=== PATIENT | female | born 1950 | race Caucasian/White ===

== ENCOUNTER 2016-08-23 12:19 | Outpatient (CLI) ==
--- NOTE | 2016-08-23 13:43 | US ---
EXAM: Ultrasound bilateral carotid duplex. HISTORY: Dizziness. COMPARISON: 09/07/2015. CT angiogram 10/07/2015. TECHNIQUE: Multiple elias scale and color Doppler images were obtained. FINDINGS: Please note that estimates of internal carotid artery stenoses are based upon NASCET eliseo samson. Right carotid: Mixed plaquing present which causes near 50% stenosis in the proximal internal carot id artery. Peak systolic velocity measurement in the right internal carotid artery is 1.7 meters pe r second. Right internal to common carotid artery peak systolic velocity ratio measures 2.4. End d iastolic velocity measurement in the right internal carotid artery is 0.6 meters per second. Flow i n the right vertebral artery is antegrade. Left carotid: Mixed plaquing present which approaches 50% stenosis. Peak systolic velocity measure ment in the left internal carotid artery is 1.5 meters per second. Left internal to common carotid artery peak systolic velocity ratio measures 3.4. End diastolic velocity measurement in the left in ternal carotid artery measures 0.3 meters per second. Flow in the left vertebral artery is antegrad e. IMPRESSION: 1. Findings suggest moderate, 50-69%, stenosis in the right or left internal carotid arteries. 2. Antegrade flow in both vertebral arteries.
== END 2016-08-23 12:20 | disposition home or self-care (01) ==
LOC: RAD 12:19
PROVIDERS: ATTEND Internal Medicine
DX: R42 Dizziness and giddiness (principal)

== ENCOUNTER 2016-08-24 06:49 | Outpatient (CLI) ==
--- NOTE | 2016-08-24 08:51 | DI ---
Exam: Two x-rays of the chest. Comparison: 09/07/2015. Reason for exam: Cough and smoker. FINDINGS: No pneumothorax, pleural effusion, or focal consolidation. The cardiac silhouette is not enlarged. The imaged osseous structures are atraumatic. Degenerative changes are seen in the thor acic spine and shoulders. Density seen overlying the left axilla region is presumed to be external t o the patient. Impression: 1. No acute cardiopulmonary process. 2. Density overlying the left axilla is presumed to the exterior to the patient. Recommend further evaluation if clinical concern exists.
--- NOTE | 2016-08-27 07:58 | ECHO2D ---
Date of Exam: 08/24/16 Ordering Physician: DURAN BOOTHE Reason for Echo: CHEST PAIN, HTN, DIZZINESS, FATIGUE M-Mode Normal Adult Results LV Dimensions Normal Adult Results AoV Opening excursions >1.6 >1.6 LVEDD-base- 3.5-5.8 5.7 Ao root dimensions 2.0-3.7 3.0 LVESD-base- 3.1-4.6 L. Atrium dimensions 1.9-3.8 4.5 Post. Wall thickness 0.8-1.1 1.2 IV septum (thickness) 0.7-1.2 1.2 Post. Wall excursion 0.72-1.3 NORMAL Septal motion NORMAL Systolic motion R. Ventricular cavity 1.5-2.0 NORMAL LVEF 60% 58% Paradoxical septal wall motion NORMAL 2-D : BORDERLINE ENLARGED LEFT ATRIAL AND LEFT VENTRICLE CAVITIES--NORMAL LEFT VENTRICULAR CONTRACTILITY--NO EFFUSION, NO THROMBUS, VALVES--NORMAL M-MODE: MV: NORMAL AV: NORMAL TV: NORMAL PV: CHAMBER SIZE: ENLARGED LEFT ATRIAL AND LEFT VENTRICLE CAVITIES WALL MOTION: NORMAL PERICARDIUM: NORMAL INTERPRETATION: 1. BORDERLINE LEFT VENTRICULAR HYPERTROPHY WITH ENLARGED LEFT ATRIAL CAVITY 2. BORDERLINE LEFT VENTRICLE CAVITY 3. NORMAL LEFT VENTRICLE CONTRACTILITY MTDD
== END 2016-08-24 06:50 | disposition home or self-care (01) ==
LOC: CAR 06:49 → RAD 06:50
PROVIDERS: ATTEND Internal Medicine
DX: R05 Cough (principal); F17.210 Nicotine dependence, cigarettes, uncomplicated; R07.9 Chest pain, unspecified; R53.83 Other fatigue; I10 Essential (primary) hypertension; R42 Dizziness and giddiness

== ENCOUNTER 2016-08-27 06:46 | Outpatient (CLI) ==
--- NOTE | 2016-08-27 09:11 | STRESSECHO ---
Date of Test: 08/27/16 Ordering Physician: DURAN BOOTHE Reason for Exam: CHEST PAIN, DIZZINESS, HYPERTENSION Current Medications: ZOLOFT, SIMVASTATIN, PANTOPRAZOLE, LIBRIUM Physical Findings: S1, S2, NO S3 Resting EKG: SINUS RHYTHM, NO ACUTE CHANGES Target Heart Rate: 130 STAGE MPH/GRADE HEART RATE BPM BLOOD PRESSURE mmhg RHYTHM S-T SEGMENT +/- UP DOWN SYMPTOMS,COMMENTS At Rest 65 140/86 SR X NONE 1 1.7/10% 95 160/80 SR X NONE 2 2.5/12% 120 200/80 SR X NONE 3 3.4/14% 4 4.2/16% 5 5.0/18% Immediately after 122 240/76 SR X SHORT OF BREATH Durations of Exercise: 6:05 Maximum Heart Rate Reached: 122 Reason for Termination: SHORT OF BREATH INTERPRETATION: 96% OXYGEN SATURATION WITH EXERCISE ON ROOM AIR METS 7.2 1. NO EVIDENCE OF ISCHEMIA BY ST-T WAVE 2. BLOOD PRESSURE RESPONSE HYPERTENSION WITH EXERCISE (SEVERE) 3. COUPLE OF PVC'S WITH EXERCISE 4. NO CHEST PAIN OR DISCOMFORT NORMAL LEFT VENTRICULAR CONTRACTILITY--RESTING AND POST EXERCISE MTDD
--- NOTE | 2016-08-27 09:53 | ECHOSTRESS ---
Date of Exam: 08/27/16 Ordering Physician: DURAN BOOTHE Reason for Echo: CHEST PAIN, DIZZINESS, HTN, STRESS TEST--NO ISCHEMIA M-Mode Normal Adult Results LV Dimensions Normal Adult Results AoV Opening excursions >1.6 LVEDD-base- 3.5-5.8 Ao root dimensions 2.0-3.7 LVESD-base- 3.1-4.6 L. Atrium dimensions 1.9-3.8 Post. Wall thickness 0.8-1.1 IV septum (thickness) 0.7-1.2 Post. Wall excursion 0.72-1.3 Septal motion Systolic motion R. Ventricular cavity 1.5-2.0 LVEF 60% Paradoxical septal wall motion 2-D: NORMAL LEFT VENTRICULAR RESTING AND POST EXERCISE M-MODE: MV: AV: TV: PV: CHAMBER SIZE: WALL MOTION: NORMAL LEFT VENTRICULAR RESTING AND POST EXERCISE PERICARDIUM: INTERPRETATION: 1. NORMAL LEFT VENTRICULAR RESTING AND POST EXERCISE MTDD
== END 2016-08-27 06:47 | disposition home or self-care (01) ==
LOC: CAR 06:46
PROVIDERS: ATTEND Internal Medicine
DX: R07.9 Chest pain, unspecified (principal); I10 Essential (primary) hypertension; R42 Dizziness and giddiness; R53.83 Other fatigue

== ENCOUNTER 2016-09-18 12:54 | Outpatient (CLI) ==
--- NOTE | 2016-09-19 08:21 | MAMMO ---
EXAM: Bilateral digital screening mammogram History: Screening Comparison: Bilateral mammogram 09/07/2015 Findings: MLO and CC views of bilateral breast demonstrate scattered fibroglandular breast parenchy ma. Stable benign bilateral breast lymph nodes. There are no dominant masses, no suspicious calcif ications and no architectural distortions Impression: Benign stable mammogram. Recommend followup routine screening mammography in 1 year. BIRADS 2
== END 2016-09-18 12:55 | disposition home or self-care (01) ==
LOC: RAD 12:54
PROVIDERS: ATTEND Internal Medicine
DX: Z12.31 Encounter for screening mammogram for malignant neoplasm of breast (principal)

== ENCOUNTER 2016-10-22 13:54 | Outpatient (CLI) ==
--- NOTE | 2016-10-22 14:26 | DI ---
EXAM: Three-view lumbar spine COMPARISON: None HISTORY: Back pain. FINDINGS: There may be a transitional lumbosacral segment. There is some minimal vertebral body heig ht loss seen involving the lower thoracic vertebral bodies. There is a minimal retrolisthesis of L1 on L2 and L2 on L3. There is some mild disc space narrowing in the upper lumbar spine. There is a mo derate degree of diffuse degenerative change. The visualized sacroiliac joints are symmetric with no evidence for erosion. There is a rounded raoul cification in the right upper quadrant which may be a gallstone. There is advanced calcific atherosc lerosis. IMPRESSION: 1. No definite acute abnormality. There are degenerative changes as noted. If clinically indicate d MRI may be helpful. 2. Possible gallstone. Recommend an ultrasound if clinically indicated.
== END 2016-10-22 13:55 | disposition home or self-care (01) ==
LOC: RAD 13:54
PROVIDERS: ATTEND Internal Medicine
DX: M54.5 Low back pain (principal)

== ENCOUNTER 2016-12-11 13:55 | Outpatient (CLI) | payer OTHER | END 2016-12-11 13:56 | disposition home or self-care (01) | LOC: LAB 13:55 | PROVIDERS: ATTEND Internal Medicine | DX: Z11.59 Encounter for screening for other viral diseases (principal) | CPT/HCPCS: 36415; 86803 ==

== ENCOUNTER 2017-02-28 16:35 | Outpatient (CLI) | payer OTHER ==
[2017-02-28 17:06] LABS: CREATININE 0.75 mg/dL (0.60-1.30)
== END 2017-02-28 16:36 | disposition home or self-care (01) ==
LOC: LAB 16:35
PROVIDERS: ATTEND Internal Medicine
DX: Z01.812 Encounter for preprocedural laboratory examination (principal)
CPT/HCPCS: 36415; 82565

== ENCOUNTER 2017-03-01 07:54 | Outpatient (CLI) | payer OTHER ==
--- NOTE | 2017-03-01 08:59 | CT ---
EXAM: CT abdomen pelvis with contrast HISTORY: Lower abdominal pain COMPARISON: 06/22/2014 TECHNIQUE: CT abdomen pelvis performed with intravenous contrast. Coronal and sagittal reformatted images obtained. FINDINGS: Lung bases clear. No free air. No acute abnormalities of the bones. Degenerative change in the spine. Heart normal in size. Liver appears normal. There is a 2 cm gallstone. Pancreas ap pears normal. Spleen appears normal. Adrenals appear normal. Kidneys appear normal. Aorta normal in caliber. Mild to moderate atherosclerosis. Uterus unremarkable. Bladder only mildly distended a nd poorly evaluated, grossly unremarkable. No lymphadenopathy or ascites. Stomach appears normal. No dilated loops small bowel. Appendix appears normal. Colon unremarkable. Tiny fat-containing umb ilical hernia. No inflammatory stranding identified in the abdomen or pelvis. IMPRESSION: 1. No acute inflammatory process identified in the abdomen or pelvis. 2. Cholelithiasis.
== END 2017-03-01 07:55 | disposition home or self-care (01) ==
LOC: RAD 07:54
PROVIDERS: ATTEND Internal Medicine
DX: R10.30 Lower abdominal pain, unspecified (principal)

== ENCOUNTER 2017-03-04 08:02 | Outpatient (CLI) ==
--- NOTE | 2017-03-04 11:03 | MRI ---
EXAM: Brain MRI with and without contrast. HISTORY: Dizziness. COMPARISON: Head CT 04/10/2016. TECHNIQUE: Multiplanar, multisequence MR images were acquired of the brain before and after administ ration of intravenous contrast. FINDINGS: The midline structures are central and the craniocervical junction is unremarkable. The v entricles and sulci are prominent compatible with age related involutional changes. There are no abn ormal extra-axial fluid collections. The brain parenchyma has no restricted diffusion to suggest acute hypoperfusion or infarction. There is a thin band of periventricular T2 hyperintensity and small T2 hyperintensities are present in the supratentorial white matter and left graciela compatible with mild leukomalacia. There is no abnormal d ark gradient echo signal. After administration of gadolinium, no enhancing lesions are identified. The corpus callosum has a normal configuration. The pituitary gland is normal in size with homogeneo us contrast enhancement. There are no intraorbital masses. There has been previous lens surgery bilaterally. Minor hyperosto sis frontalis interna is present. The frontal sinus is hypoplastic. Mild mucosal thickening is pres ent in the right sphenoid air cell. Remainder of the paranasal sinuses, middle ears and mastoids are unremarkable. There is no abnormal contrast enhancement in the internal auditory canals or labyrinth ine structures. There is mild adenoidal hypertrophy. Flow voids are present in the major intracranial arteries and dural venous sinuses. Degenerative cameron ges are present in the soft tissues anterior to the odontoid. IMPRESSION: 1. No vestibular schwannoma, intracranial hemorrhage or acute cerebral infarct. 2. Age related involutional changes and mild chronic ischemic small vessel disease.
== END 2017-03-04 08:03 | disposition home or self-care (01) ==
LOC: RAD 08:02
PROVIDERS: ATTEND Internal Medicine
DX: R42 Dizziness and giddiness (principal)

== ENCOUNTER 2017-08-05 10:46 | Day surgery (SDC) | payer OTHER ==
[2017-08-05] MEDS ORDERED: VERSED ONE (12:20)
[2017-08-05] MEDS ORDERED: DIPRIVAN 20 ML VIAL IVP ONE (12:20)
[2017-08-05] MEDS ORDERED: LIDOCAINE 1% 20 ML MDV ID STA (12:25)
[2017-08-05 15:15] VITALS: BP 126/67; TEMP 97.3
--- NOTE | 2017-08-06 11:10 | OP ---
PROCEDURE: COLONOSCOPY TO THE CECUM WITH SNARE POLYPECTOMY. ENDOSCOPIST: Nayeli BYRD M.D. INDICATION: HISTORY OF ABDOMINAL PAIN; NO PREVIOUS COLONOSCOPY. INSTRUMENT: [id number]. MEDICATION: PER ANESTHESIA. [place] Bowel Prep Score 2 + 2 + 3 = 7. PROCEDURE: The patient was positioned for colonoscopy. The digital rectal exam was negative. The colonoscope was inserted through the anus and advanced to the cecum. The cecum was identified using the ileocecal valve and the appendiceal orifice as landmarks. The scope was slowly withdrawn through an adequately prepped colon. The exam was notable for a 1 cm polyp in the cecum, removed using snare cautery. Small polyps removed at 50 and 40 cm using snare cautery. Diverticulosis of the left colon. Hemorrhoids seen on retroflex exam. Withdrawal time 8 minutes and 27 seconds. PLAN: 1. Review pathology with repeat colonoscopy in 3 years. GABRIEL
== END 2017-08-05 13:25 | disposition home or self-care (01) ==
LOC: SURG 10:46
PROVIDERS: ATTEND Internal Medicine Gastroenterology
DX: R10.9 Unspecified abdominal pain (principal); D12.0 Benign neoplasm of cecum; K63.5 Polyp of colon; K57.30 Diverticulosis of large intestine without perforation or abscess without bleeding; K64.9 Unspecified hemorrhoids

== ENCOUNTER 2017-09-20 10:53 | Outpatient (CLI) | payer OTHER ==
--- NOTE | 2017-09-20 11:42 | DI ---
EXAM: Two views of the chest. History: Cough, history smoking Comparison: Chest radiograph 08/24/2016 Findings: Heart size is within normal limits. No focal consolidation. No appreciable pleural fluid and no pneumothorax. No acute osseous abnormalities. Impression: No acute cardiopulmonary process.
--- NOTE | 2017-09-20 11:45 | DI ---
EXAM: Three views of the lumbar spine. History: Lower back pain. Comparison: Lumbar spine radiograph 10/22/2016 Findings: Atherosclerotic vascular calcifications. Cholelithiasis again noted. No acute fracture o r subluxation of the lumbar spine. No significant interval change in the multilevel mild to moderate degenerative disc space narrowing with endplate sclerosis and osteophyte formation. Moderate facet hypertrophy again seen within the lower lumbar spine and worse on the left. Impression: 1. No acute osseous abnormality. 2. Stable degenerative changes. 3. Cholelithiasis.
--- NOTE | 2017-09-23 10:16 | MAMMO ---
EXAM: Bilateral digital screening mammogram (2-D and 3-D) History: Screening Comparison: Bilateral mammogram 09/18/2016 Findings: MLO and CC views of bilateral breasts demonstrate scattered fibroglandular breast parenchy ma. CAD was reviewed by the radiologist. Tomosynthesis was performed. Stable benign bilateral s[address] nodules. There are no developing masses and no suspicious microcalcifications. Impression: Benign stable mammogram. Recommend followup routine screening mammography in 1 year. BIRADS 2
== END 2017-09-20 10:54 | disposition home or self-care (01) ==
LOC: RAD 10:53
PROVIDERS: ATTEND Internal Medicine
DX: Z12.31 Encounter for screening mammogram for malignant neoplasm of breast (principal); R05 Cough; M54.5 Low back pain; M47.816 Spondylosis without myelopathy or radiculopathy, lumbar region; F17.210 Nicotine dependence, cigarettes, uncomplicated
CPT/HCPCS: 77067

== ENCOUNTER 2018-04-08 07:08 | Outpatient (CLI) | payer OTHER ==
--- NOTE | 2018-04-08 09:56 | US ---
EXAM: Bilateral carotid artery Doppler. History: Dizziness, hypertension, weakness. Comparison: Carotid Doppler 08/23/2016 Technique: Multiple sonographic images through the bilateral internal carotid arteries were obtained . Color duplex Doppler was used to interrogate vascular flow. Findings: The right ICA peak systolic velocity is moderately elevated measuring 130 cm/sec. The righ t ICA/cca PSV ratio is moderately increased at 2.4. Right vertebral artery is patent and demonstrate s antegrade flow. [place] scale images demonstrate mild to moderate plaque buildup within the right int ernal carotid artery. The left ICA peak systolic velocity is moderately elevated measuring 140 cm/sec. The left ICA/cca PS V ratio is moderately increased at 2.2. The left vertebral artery is patent and demonstrates antegra de flow. Sanabria scale images demonstrate moderate plaque buildup within the left internal carotid vitaliy ry. Impression: Moderate, 50-60% hemodynamic stenosis of the bilateral internal carotid arteries and wor se on the left. No significant interval change compared to the prior study.
--- NOTE | 2018-04-09 09:50 | ECHO2D ---
Date of Exam: 04/08/18 Ordering Physician: DR. DURAN BOOTHE Room # : OP Reason for Echo: DIZZINESS, SOB, HTN M-Mode Normal Adult Results LV Dimensions Normal Adult Results AoV Opening excursions >1.6 >1.6 LVEDD-base- 3.5-5.8 5.6 Ao root dimensions 2.0-3.7 3.2 LVESD-base- 3.1-4.6 L. Atrium dimensions 1.9-3.8 4.4 Post. Wall thickness 0.8-1.1 1.2 IV septum (thickness) 0.7-1.2 1.2 Post. Wall excursion 0.72-1.3 NORMAL Septal motion NORMAL Systolic motion R. Ventricular cavity 1.5-2.0 NORMAL LVEF 60% 58% Paradoxical septal wall motion NORMAL 2-D : ENLARGED LEFT ATRIAL CAVITY--NORMAL LEFT VENTRICULAR CONTRACTILITY-- NORMAL VALVES--NO EFFUSION, NO THROMBUS M-MODE: MV: NORMAL AV: NORMAL TV: NORMAL PV: CHAMBER SIZE: ENLARGED LEFT ATRIAL CAVITY WALL MOTION: NORMAL PERICARDIUM: NORMAL INTERPRETATION: 1. LEFT VENTRICULAR HYPERTROPHY --BORDERLINE 2. NORMAL LEFT VENTRICULAR CONTRACTILITY 3. ENLARGED LEFT ATRIAL SIZE MTDD
== END 2018-04-08 07:09 | disposition home or self-care (01) ==
LOC: CAR 07:08
PROVIDERS: ATTEND Internal Medicine
DX: R42 Dizziness and giddiness (principal); I65.29 Occlusion and stenosis of unspecified carotid artery; R06.02 Shortness of breath; I10 Essential (primary) hypertension

== ENCOUNTER 2018-10-07 15:20 | Outpatient (CLI) ==
--- NOTE | 2018-10-07 15:55 | DI ---
EXAM: Chest two views HISTORY: Cough COMPARISON: 09/20/2017 TECHNIQUE: Two views of the chest were performed FINDINGS: The lungs are clear. There is no pleural effusion or pneumothorax. The heart is normal i n size. The mediastinal contour is normal. There are no acute abnormalities of the bones. IMPRESSION: No acute cardiopulmonary process.
--- NOTE | 2018-10-08 10:01 | MAMMO ---
EXAM: Bilateral digital screening mammogram (2-D and 3-D) History: Screening Comparison: Bilateral mammogram 09/20/2017 Findings: MLO and CC views of bilateral breasts demonstrate scattered fibroglandular breast parenchy ma. CAD was reviewed by the radiologist. Tomosynthesis was performed. Stable benign bilateral s[address] nodules. There are no developing masses and no suspicious microcalcifications. Impression: Benign stable mammogram. Recommend followup routine screening mammography in 1 year. BI-RADS 2, benign
== END 2018-10-07 15:21 | disposition home or self-care (01) ==
LOC: RAD 15:20
PROVIDERS: ATTEND Internal Medicine
DX: Z12.31 Encounter for screening mammogram for malignant neoplasm of breast (principal); R05 Cough; F17.210 Nicotine dependence, cigarettes, uncomplicated

== ENCOUNTER 2019-01-05 06:51 | Outpatient (CLI) ==
--- NOTE | 2019-01-05 09:38 | STRESSECHO ---
Date of Test: 01/05/19 Ordering Physician: DR. DURAN BOOTHE Occupation: RETIRED Reason for Exam: SOB, PALPITATIONS Smoking History: 50 PK/YRS Height: 62" Weight: 192 LBS Current Medications: DICYCLOMINE, OMEGA 3, LOSARTAN, PRESSER VISION, ASA, CHLORDIAZEPOXIDE, SERTRALINE, SIMVASTATIN Resting EKG: SINUS RHYTHM/ NO ACUTE CHANGES Target Heart Rate: 121/151 S-T SEGMENT STAGE MPH/GRADE HEART RATE BPM BLOOD PRESSURE MMHG RHYTHM +/- ELEVATION DEPRESSION SYMPTOMS AT REST 70 BPM 148/72 MM[facility] SR X NONE 1 1.7/10% 96 BPM 168/72 MMHG SR X NONE 2 2.5/12% 3 3.4/14% 4 4.2/16% 5 5.0/18% Immediately After 118 BPM 180/64 MMHG SR X SOA, FATIGUE Minutes Post Exercise 1 SR X NONE Minutes Post Exercise 5 70 BPM 152/70 MMHG SR X NONE DURATION OF EXERCISE: 5:42 MAXIMUM HEART RATE REACHED: 118 BPM REASON FOR TERMINATION: SOA, FATIGUE INTERPRETATION: 1. NO EVIDENCE OF ISCHEMIA BY ST-T WAVE 2. NO CHEST PAIN OR DISCOMFORT 3. BORDERLINE SYSTOLIC HYPERTENSION AT REST AND WITH EXERCISE 4. NO ARRHYTHMIAS NORMAL LEFT VENTRICULAR CONTRACTILITY RESTING AND POST EXERCISE MTDD
--- NOTE | 2019-01-05 09:40 | ECHOSTRESS ---
Date of Exam: 01/05/19 Ordering Physician: DR. DURAN BOOTHE Reason for Echo: SOB, PALPITATIONS, STRESS TEST--NO ISCHEMIA M-Mode Normal Adult Results LV Dimensions Normal Adult Results AoV Opening excursions >1.6 LVEDD-base- 3.5-5.8 Ao root dimensions 2.0-3.7 LVESD-base- 3.1-4.6 L. Atrium dimensions 1.9-3.8 Post. Wall thickness 0.8-1.1 IV septum (thickness) 0.7-1.2 Post. Wall excursion 0.72-1.3 Septal motion Systolic motion R. Ventricular cavity 1.5-2.0 LVEF 60% Paradoxical septal wall motion 2-D: NORMAL LEFT VENTRICULAR CONTRACTILITY--RESTING AND POST EXERCISE M-MODE: MV: AV: TV: PV: CHAMBER SIZE: WALL MOTION: NORMAL LEFT VENTRICULAR CONTRACTILITY--RESTING AND POST EXERCISE PERICARDIUM: INTERPRETATION: 1. NORMAL LEFT VENTRICULAR CONTRACTILITY--RESTING AND POST EXERCISE MTDD
== END 2019-01-05 06:52 | disposition home or self-care (01) ==
LOC: CAR 06:51
PROVIDERS: ATTEND Internal Medicine
DX: R06.02 Shortness of breath (principal); R00.2 Palpitations

== ENCOUNTER 2019-01-08 12:25 | Outpatient (CLI) ==
--- NOTE | 2019-01-08 14:33 | US ---
EXAM: Carotid ultrasound HISTORY: Dizziness COMPARISON: 04/16/2018 TECHNIQUE: Carotid ultrasound was performed using Duplex imaging with elias scale, color, and Doppler imaging performed. FINDINGS: Right carotid: There is atherosclerotic plaque in the common carotid and bulb/internal carotid arter ies. Visual estimate of narrowing is moderate (50 - 69%). Peak systolic velocity measurement in the right internal carotid artery is 1.14 meters per second. End-diastolic velocity measurement in the right internal carotid artery is 0.25 meters per second. Right internal to common carotid artery pea k systolic velocity ratio is 1.3. Flow in the right vertebral artery is antegrade. Left carotid: There is atherosclerotic plaque in the common carotid and bulb/internal carotid artery . Visual estimate of narrowing is moderate (50 - 69%). Peak systolic velocity measurement in the le ft internal carotid artery is 0.92 meters per second. End-diastolic velocity measurement in the left internal carotid artery is 0.27 meters per second. Left internal to common carotid artery peak syst olic velocity ratio measures 1.7. Flow in the left vertebral artery is antegrade. IMPRESSION: 1. Right internal carotid: Peak systolic velocity corresponds with mild (less than 50%) stenosis; ho wever, visualized narrowing is moderate (50 - 69%). 2. Left internal carotid: Peak systolic velocity corresponds with mild (less than 50%) stenosis; ho wever, visualized narrowing is moderate (50 - 69%).
--- NOTE | 2019-01-08 15:31 | DI ---
EXAM: LEFT KNEE. HISTORY: Knee pain FINDINGS: Left knee four view. Bones appear mildly demineralized. There is tricompartment osteoart hritis which is greater in the anterior and medial compartments ( moderate degree). There is no frac ture or joint effusion. Bony spurring of the anterior patella is consistent with enthesopathy. Soft tissues are otherwise unremarkable. IMPRESSION: 1. Tricompartment arthropathy.
--- NOTE | 2019-01-08 15:35 | DI ---
EXAM: RIGHT KNEE. HISTORY: Knee pain. FINDINGS: Right knee four view. Trabecular markings are accentuated consistent with at least mild, diffuse demineralization. There is tricompartment osteoarthritis, becoming moderate in the medial co mpartment. There is no joint effusion or osteochondral fragmentation. Mild bony spurring of the ant erior patella consistent with early enthesopathy. Soft tissues were otherwise unremarkable. IMPRESSION: 1. Tricompartment osteoarthritis, moderate in the medial compartment.
== END 2019-01-08 12:26 | disposition home or self-care (01) ==
LOC: RAD 12:25
PROVIDERS: ATTEND Internal Medicine
DX: M25.562 Pain in left knee (principal); M25.561 Pain in right knee; R42 Dizziness and giddiness

== ENCOUNTER 2019-01-09 10:46 | Outpatient (CLI) ==
--- NOTE | 2019-01-09 19:15 | CT ---
EXAM: CTA of the neck was performed with and without contrast TECHNIQUE: Helical axial CTA of the neck was performed with and without contrast with multiplanar re constructions and separate work station 3-D renderings. COMPARISON: CT angiogram of the neck from 10/07/2015 HISTORY: Carotid stenosis and dizziness FINDINGS: There is no acute soft tissue abnormality. There are no neck masses or pathologic lymph nod es. The thyroid gland is unremarkable. No acute abnormality in the upper chest. There are no acute os seous abnormalities. There is advanced degenerative change in the cervical spine.There is extensive osteophytosis seen involving the inferior aspect of the anterior arch of C1. Aorta: There is advanced calcific atherosclerosis of the aorta with no evidence for dissection or an eurysm. There is fairly extensive calcific atherosclerosis of the origins of the great vessels. The re is approximately 50% stenosis of the origin of the brachiocephalic artery and about 30% stenosis o f the origin of the left subclavian artery. The right subclavian artery demonstrates some non stenot ic calcific atherosclerosis. There is normal branching anatomy of the great vessels. Right carotid artery: The origin of the right common carotid artery off the brachiocephalic and the common carotid artery in the neck are widely patent. There is a moderate amount of calcific atherosc lerosis involving the right carotid bifurcation which results in about 30% luminal diameter narrowing of the right internal carotid artery at the bifurcation. There is no other focal stenosis of the in ternal carotid artery and there is no dissection. Right vertebral artery: There is some minimal calcific atherosclerosis of the origin of the right ve rtebral artery which does not appear to be hemodynamically significant. The course of the right vert ebral artery in the neck is normal with no focal stenosis or dissection or aneurysm. Left carotid artery: There is calcific atherosclerosis of the origin of the left common carotid arter y resulting in about 30 40% stenosis. The common carotid artery in the neck is widely patent. Likew ise there is moderate calcific atherosclerosis of the left carotid bifurcation which results in about 30% stenosis of the left internal carotid artery at the bifurcation. There is no other focal stenos is involving the left internal carotid and there is no dissection. Left vertebral artery: There is moderate calcific atherosclerosis at the origin of the left vertebra l artery with a post stenotic dilatation suggesting hemodynamic significance. This probably measures at least 60% luminal diameter narrowing. The course of the left vertebral artery in the neck is unr emarkable with no focal stenosis or aneurysm or dissection. The left vertebral artery is dominant. IMPRESSION: 1. Moderate calcific atherosclerosis of the bilateral carotid bifurcations resulting in about 30% st enosis of the internal carotid arteries at the bifurcations bilaterally. 2. Calcific atherosclerosis of the origin of the left common carotid artery measuring about 30-40% s tenosis. 3. Calcific atherosclerosis of the origin of the left vertebral artery which is dominant resulting i n about 60% luminal diameter narrowing. The vertebral arteries are otherwise widely patent. 4. Moderate atherosclerotic narrowing of the origin of the innominate artery and the left subclavian artery. 5. Advanced osteophytosis of the anterior arch of C1. This is a risk factor for calcific tendonitis of the longus colli muscles.
== END 2019-01-09 10:47 | disposition home or self-care (01) ==
LOC: RAD 10:46
PROVIDERS: ATTEND Internal Medicine
DX: R42 Dizziness and giddiness (principal); I65.23 Occlusion and stenosis of bilateral carotid arteries